=== PATIENT | male | born 1955 | race Caucasian/White ===

== ENCOUNTER 2016-08-11 06:57 | Day surgery (SDC) | payer OTHER ==
[2016-08-09 13:46] VITALS: BMI 28.5
[2016-08-11] MEDS ORDERED: BUPIVACAINE HCL/PF 2.5 MG/ML - 30 ML VIAL IJ ONE (08:22)
[2016-08-11] MEDS ORDERED: MIDAZOLAM HCL 2 MG/2 ML SINGLE DOSE VIAL ONE (09:26)
[2016-08-11] MEDS ORDERED: ROPIVACAINE HCL 0.5% 30ML VIAL ONE (09:27)
[2016-08-11] MEDS ORDERED: LIDOCAINE 1% P/F 10 MG/ML VIAL ONE (09:27)
[2016-08-11] MEDS ORDERED: DEXAMETHASONE SOD PHOSPHATE/PF 10 MG/ML SDV ONE (09:33)
[2016-08-11] MEDS ORDERED: ceFAZolin SODIUM 1 GM VIAL ONE (11:06)
[2016-08-11] MEDS ORDERED: TRANEXAMIC ACID 1000 MG/10 ML VIAL ONE (11:06)
[2016-08-11] MEDS ORDERED: ONDANSETRON 4 MG/2 ML VIAL ONE (11:06)
[2016-08-11] MEDS: KETOROLAC TROMETHAMINE 30 MG/1 ML VIAL ONE ×2 (11:15→11:20)
[2016-08-11 14:18] VITALS: TEMP 98.4
[2016-08-11 14:32] VITALS: BP 152/92; PULSE 75
--- NOTE | 2016-08-11 23:02 | OP ---
DATE OF OPERATION: 08/11/2016 SURGEON: Man Fernández M.D. ANESTHESIOLOGIST: Albino Huerta M.D. ADULT AND PEDIATRIC NEUROLOGIST: Jaydon Cheema M.D. whose skilled surgical assistance was necessary for the retraction and protection of vital structures, for the handling and implementation of precise and delicate surgical instrumentation as well as overall safe conveyance of the procedure. TYPE OF ANESTHESIA: Femoral nerve block with LMA general. ANTIBIOTICS: Kefzol was given preoperatively for prophylaxis against infection, 1 g of tranexamic acid was given preoperatively. PREOPERATIVE DIAGNOSIS: Right quadriceps tendon rupture. 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 POSTOPERATIVE DIAGNOSIS: Right quadriceps tendon rupture. 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 PROCEDURE: Right knee quadriceps tendon rupture repair. HARDWARE USED: A single Biocomposite sublock anchor from [employer] which was loaded with number 2 fiber tape and number 2 Fiberwire. BLOOD LOSS: Minimal. COMPLICATIONS: There were no complications. INDICATION: The patient is a 60-year-old male well known by me, status post total knee replacement from which he had recovered well, was doing well, and then fell at work onto both knees, injuring both knees. Left knee was only mild. The right knee had swelling, pain, was unable to fully extend his legs. He is noticing weakness . Had x-rays showing question of . He was seen in the office, x-rays reviewed, and he was examined. He had mild to moderate effusion but a palpable defect just proximal to the superior pole of the patella, more on the medial aspect of his knees than the lateral aspect. He has extreme weakness with attempted extension and painful palpable defect in that area. Treatment options were reviewed in length and in detail with the patient, both operative and nonoperative treatment discussed. I recommended surgery as the best way to treat this. We discussed what was involved with the surgery, risks and benefits were discussed. Patient wished to receive the surgery. The risks were explained include but not limited to infection, stiffness, continued pain, chance that his tendon may not heal, chance that should he develop an infection it would be a complete disaster necessitating removing his knee replacement and placing him on long-term IV antibiotics and a chance that should infection not be curable, he could be left without a knee replacement and chance that should he develop significant stiffness he may require additional surgery including removal and scar tissue manipulation under anesthesia of his knee and possible revision of his knee replacement. The patient understands this. He has identified. He would like to proceed with the planned procedure. Again, this was reviewed with the patient and his in the preoperative holding area today. He has identified his right knee as the operative site which is confirmed by the operating staff, and he agrees to proceed with the planned procedure. The procedure is as follows. DESCRIPTION OF PROCEDURE: After administration of a femoral nerve block in the preoperative holding area, the patient is brought in the operating room where LMA general anesthetic was administered by the anesthesiologist, tourniquet was placed around the thigh but was no inflated during the case. Knee was examined. There was seen findings that were in the office, palpable defect. Using the prior incision, the proximal 1/2 of the prior incision knee replacement. The incision was carried down to subcutaneous tissues onto the like fascia which had scarred in. Upon entering the defect, there was a hematoma that was expressed. There was an irregular shaped pair with a good portion of approximately 1-2 cm of quadriceps tendon still attached to the of the tear. It was a distal quadriceps tendon leaving more medial. The lateral fibers appear to be intact. The longitudinal incision was developed around the patella itself. The free edge of the patella was freshened up. A single corkscrew anchor was placed after using a drill and a tap. The two sets of suture, one was a Fiberwire, was then whip stitched through the remaining tendon, up past the pair, restoring the tear to its anatomic position, and then the fiber tape was also whip stitched through also closing the longitudinal rent created to repair the medial quadriceps tear. These were then tied under maximal tension. The knee was taken through range of motion. There was no undue tension upon the repair with passive flexion of the knee. The wounds were irrigated with copious amount of antibiotic normal saline solution. The knee joint itself was irrigated with copious amounts of antibiotic normal saline solution. The deeper subcutaneous tissues were closed with 0 and 2-0 Vicryl sutures, and the skin edges reapproximated with running 3-0 nylon sutures and Aquacel dressing was applied, ABD pad and thigh-high RENEE stockings were applied. A knee immobilizer was then placed on his knee. The patient was then awoken and transported to the recovery room in stable condition. He tolerated the procedure well. Postoperatively, he is going to be full weightbearing as tolerated with the knee immobilizer on at all times during the first 6 weeks to allow healing, he is going to follow up in the office in approximately 10 days' time, we are going to begin protected bending, which I will give him some exercise to do, and then formal physical therapy in 6 weeks. MAN FERNÁNDEZ M.D. [id number]
== END 2016-08-11 13:45 | disposition home or self-care (01) ==
LOC: FASU 06:57
PROVIDERS: ATTEND Orthopaedic Surgery
PROC: 0KQQ0ZZ Repair Right Upper Leg Muscle, Open Approach (ICD-10-PCS; principal; 2016-08-11 10:18)
DX: M66.851 Spontaneous rupture of other tendons, right thigh (principal); Z96.651 Presence of right artificial knee joint
CPT/HCPCS: 94760; 97116-GP